=== PATIENT | female | born 1990 | race Caucasian/White ===

== ENCOUNTER 2017-01-30 06:00 | Day surgery (SDC) | payer MEDICAID, OTHER ==
[2017-01-30] MEDS ORDERED: Lactated Ringers 1,000 ML IV ONE ×2 (06:41→07:49)
[2017-01-30] MEDS ORDERED: Lactated Ringers 1,000 ML IV SCH (07:00)
[2017-01-30] MEDS ORDERED: Ketamine HCl 50 MG/ML IV ONE (08:00)
[2017-01-30] MEDS ORDERED: DIPRIVAN 200 MG/20 ML IV ONE (08:00)
[2017-01-30 08:51] VITALS: O2SAT 99
[2017-01-30 08:57] VITALS: BP 106/68; PULSE 68
--- NOTE | 2017-01-30 12:22 | OP ---
SURGERY DATE/TIME: 01/30/2017 0725 PREOPERATIVE DIAGNOSES: 1) History of colon polyp. 2) Rectal bleeding. POSTOPERATIVE DIAGNOSIS: Normal colon. PROCEDURE: Colonoscopy. SURGEON: Dr. Beard. ANESTHESIA: MAC. Medications given by anesthesia department. HISTORY: The patient is a 26 year-old white female patient presents now for colonoscopic evaluation due to the above complaints. The patient was appraised of the risks of the procedure including the risk of perforation, phlebitis, untoward reaction to medication, bleeding, and missed lesions. The patient verbalized her understanding and desired to have the procedure performed. DESCRIPTION OF PROCEDURE: The patient was given the medications by the anesthesia department. She had continuous pulse oximetry, ECG monitoring, intermittent blood pressure monitoring, and tidal CO2 monitoring during the examination. She was placed in the left lateral decubitus position. A digital rectal examination was performed and revealed normal anal sphincter tone and no masses. The flexible Olympus pediatric colonoscope was used to intubate the rectum. A view of the colon was developed sequentially to the cecum. Upon insertion and withdrawal, including a retroflex view in the rectum, no mucosal lesions were encountered. The scope was removed from the patient who tolerated the procedure well. The prep was noted to be poor with solid and semisolid stool throughout the colon.
== END 2017-01-30 08:56 | disposition home or self-care (01) ==
LOC: SDC 06:00
PROVIDERS: ATTEND Family Medicine
PROC: 0DJD8ZZ Inspection of Lower Intestinal Tract, Via Natural or Artificial Opening Endoscopic (ICD-10-PCS; principal; 2017-01-30)
DX: Z86.010 Personal history of colon polyps (principal); K62.5 Hemorrhage of anus and rectum
CPT/HCPCS: 00810; J2704